=== PATIENT | female | born 1935 | race Caucasian/White ===

== ENCOUNTER 2016-05-02 17:03 | Emergency (ER) | payer MEDICARE, OTHER ==
[2016-07-01] MEDS ORDERED: CHLORTHALIDONE25 MG PO (12:00)
[2016-07-01] MEDS ORDERED: ZYLOPRIM100 MG PO (12:01)
[2016-07-01] MEDS ORDERED: BETAPACE 80 MG80 MG PO (12:01)
[2016-07-01] MEDS ORDERED: VITAMIN D2000 UNIT PO (12:02)
[2016-07-01] MEDS ORDERED: PRINIVIL20 MG PO (12:17)
[2016-07-01 12:53] VITALS: BMI 19.2
== END 2016-05-02 18:15 | disposition home or self-care (01) ==
LOC: D.ER 17:03
DX: S01.01XA Laceration without foreign body of scalp, initial encounter (principal); W18.30XA Fall on same level, unspecified, initial encounter; Y93.89 Activity, other specified; Y92.019 Unspecified place in single-family (private) house as the place of occurrence of the external cause; Z95.0 Presence of cardiac pacemaker; I10 Essential (primary) hypertension; Z79.01 Long term (current) use of anticoagulants

== ENCOUNTER 2016-06-24 21:34 | Emergency (ER) | payer MEDICARE, OTHER | END 2016-06-24 23:37 | disposition home or self-care (01) | LOC: D.ER 21:34 | DX: S01.01XA Laceration without foreign body of scalp, initial encounter (principal); W22.8XXA Striking against or struck by other objects, initial encounter; Y93.89 Activity, other specified; Y92.019 Unspecified place in single-family (private) house as the place of occurrence of the external cause; Z95.0 Presence of cardiac pacemaker; I48.91 Unspecified atrial fibrillation; I10 Essential (primary) hypertension ==

== ENCOUNTER 2016-08-22 09:48 | Inpatient (IN) | payer MEDICARE, OTHER ==
[~2016-08-22] VITALS: Ht 172.7 cm; Wt 55.5 kg
[~2016-08-22 09:48] MED LIST: BETAPACE 80 MG80 MG PO; CHLORTHALIDONE25 MG PO; PRINIVIL20 MG PO; VITAMIN D2000 UNIT PO; ZYLOPRIM100 MG PO
[2016-08-22 10:26] LABS: APPEARANCE CLEAR (CLEAR); BILIRUBIN NEGATIVE (NEGATIVE); COLOR YELLOW (YELLOW); GLUCOSE NEGATIVE (NEGATIVE); KETONE NEGATIVE (NEGATIVE); LEUKOCYTE ESTERASE NEGATIVE (NEGATIVE); NITRITE NEGATIVE (NEGATIVE); PROTEIN NEGATIVE (NEGATIVE); UROBILINOGEN NORMAL (NORMAL)
[2016-08-22 10:48] LABS: BASOPHILS 0.6 % (0-2); EOSINOPHILS 1.7 % (0-7); HEMOGLOBIN 13.9 g/dL (12-16); IMMATURE GRANULOCYTES 0.1 % (0-5); MCH 34.1 pg (26.0-34.0); MCHC 33.1 g/dL (31.0-37.0); MCV 102.9 fL (80.0-100.0); MEAN PLATELET VOLUME 11.9 fL (7.4-10.4); NEUTROPHILS 61.6 % (40-80); PLATELET COUNT 149 10x3/uL (130-400); RBC 4.08 10x6/uL (4.00-5.40); RDW 14.9 % (11.5-14.5); WBC 7.2 10x3/uL (4.8-10.8)
[2016-08-22 10:53] LABS: ALBUMIN 3.5 g/dL (3.4-5.0); ALKALINE PHOSPHATASE 74 U/L (46-116); ALT (SGPT) 46 U/L (10-68); BILIRUBIN - TOTAL 0.77 mg/dL (0.2-1.3); CALC OSMOLALITY 291 mosm/kg (275-300); CALCIUM 9.4 mg/dL (8.5-10.1); CARBON DIOXIDE 23.5 mmol/L (21.0-32.0); CHLORIDE - SERUM 106 mmol/L (98-107); CREATININE - SERUM 0.7 mg/dL (0.6-1.3); POTASSIUM - SERUM 4.1 mmol/L (3.5-5.1); PROTEIN - SERUM 6.3 g/dL (6.4-8.2); SODIUM 141 mmol/L (136-145); UREA NITROGEN 41 mg/dL (7-18); eGFR NON AFRICAN AMERICAN 86 mL/min (90-120)
[2016-08-22 10:54] LABS: GLUCOSE 114 mg/dL (74-106)
--- NOTE | 2016-08-22 13:53 | HP ---
PATIENT: RIMMA SLOAN MEDICAL RECORD: [id number] ACCOUNT: [id number] LOCATION:D.[facility] : 39 ADMISSION DATE: 08/22/16 HISTORY AND PHYSICAL EXAMINATION HISTORY OF PRESENT ILLNESS: A 80-year-old female presented to the Emergency Room with weakness, 2 days of persistent diarrhea, nausea, no vomiting. PAST MEDICAL HISTORY: Significant for atrial fibrillation, gout, hypertension, pacemaker, falls, angina. CURRENT MEDICATIONS: Listed as sotalol 80 mg 2 tablets twice a day, chlorthalidone 25 mg once a day, allopurinol 100 mg b.i.d., vitamin D. FAMILY HISTORY: Noncontributory. ALLERGIES: LISTED PENICILLIN. REVIEW OF SYSTEMS: GENERAL: Loss of appetite with acute symptoms. HEENT: No cephalgia, visual changes, tinnitus, epistaxis or dysphagia. CARDIOVASCULAR: Denies acute changes. ENDOCRINE: Denies polyuria, polydipsia, polyphagia. CARDIOVASCULAR: Denies chest pain, denies palpitations. History as above. PULMONARY: Denies hemoptysis, denies night sweats. GASTROINTESTINAL: Denies hematemesis, hematochezia. Admits persistent watery diarrhea for the past 2 days. No warning. Feeling extremely dehydrated, lightheaded. GENITOURINARY: Denies dysuria. Does admit decreased urine output with acute onset of symptoms. MUSCULOSKELETAL: Generalized weakness. No other acute changes. PHYSICAL EXAMINATION: VITAL SIGNS: Temp 98.4, heart rate 62, respirations 16, blood pressure 124/53, O2 sats 100% room air. GENERAL: Alert, oriented, mild distress secondary to above, continues to have frequent diarrhea in the Emergency Room. HEENT: Normocephalic, atraumatic. Eyes: Pupils equal, round, reactive to light and accommodation. Extraocular muscles intact. Conjunctivae not injected. Ears: Canals patent, TMs are intact. Nose: Nares patent without drainage. Throat: No erythema, no exudates. NECK: Supple. No lymphadenopathy, no JVD. HEART: Regular rate and rhythm. No S3, S4, no rub. LUNGS: Clear to auscultation bilaterally. Breathing is nonlabored. ABDOMEN: Soft, nontender, hyperactive bowel sounds. EXTREMITIES: Present times 4, no edema. NEUROLOGIC: No focal deficits. SKIN: Warm, dry. No rash. LABORATORY DATA: EKG shows atrial paced rhythm, rate of 62. Acute abdomen series pending. Urinalysis yellow, clear, no significant abnormalities. Hemoglobin 13.9, hematocrit 42, platelets 149. Chemistry shows a glucose of 114, BUN 41, creatinine 0.7, sodium 141, potassium 4.1, chloride 106, bicarb 23.5, AST 54, ALT 46, alk phos 74. HISTORY AND PHYSICAL [id number] RIMMA SLOAN ASSESSMENT AND PLAN: The patient is admitted with enteritis, persistent diarrhea, dehydration, generalized weakness. We will consult her sportspersons, Dr. Shah. Acute abdominal series pending, IV hydration, supportive care. TRANSINT:[id number] Voice Confirmation ID: [id number] DOCUMENT ID: [id number] MARCOS SUAZO DO at 1353 CC: [id number] DICTATION DATE: 08/22/16 1314 STEEL BURNER: 08/22/16 1352 ADM IN [place] [id number] [place] [address]
--- NOTE | 2016-08-22 14:25 | NUR ---
RECIEVED PT VIA STRETCHER FROM ER. REPORT RECIEVED FROM EBONI MELVIN. PT ORIENTED TO ROOM, ASSESSMENT DONE PER FLOWSHEET. BED IN LOW POSITION AND CALL LIGHT WITHIN REACH. WILL CONTINUE TO MONITOR.
[2016-08-22] MEDS ORDERED: BAYER CHEWABLE81 MG PO (14:27)
[2016-08-22 15:15] VITALS: BP 113/77; Ht 172.7 cm; Wt 55.5 kg
[2016-08-22 19:00] VITALS: BP 110/53
[2016-08-23 01:43] VITALS: BP 100/46
--- NOTE | 2016-08-23 05:34 | NUR ---
PATIENT SLEEPING IN BED WITH NO COMPLAINTS. PIV TO LEFT AC NOTED INFUSING NS@100. BED IN LOWEST LOCKED POSITION, HOB ELEVATED, x3 BEDRAILS UP, CALL LIGHT WITHIN REACH.
[2016-08-23 06:20] VITALS: BP 113/59
--- NOTE | 2016-08-23 08:00 | NUR ---
ASSESSMENT PER FLOW SHEET.PT WITHOUT DISTRESS.CALL LIGHT IN REACH
[2016-08-23 08:40] VITALS: BP 120/59
[2016-08-23] MEDS ORDERED: FLORAJEN3 CAPS460 MG PO (11:10)
--- NOTE | 2016-08-23 11:38 | NUR ---
Patient Name: RIMMA SLOAN Admission Status: ER Accout number: [id number] Admission Date: 08-22-2016 : 1935 Admission Diagnosis: Attending: PAULINA Current LOS: 1 Anticipated DC Date: 08-24-2016 Planned Disposition: Home Primary Insurance: MEDICARE A & B Discharge Planning Comments: CM NOTE: CM met with patient and spouse (Consuelo Henriquez- [phone]) who will drive her home. They live in a home without any steps or stairs and pt reports that it it safe to return home too. Pt states that she is already set up with OT from [facility] and denies any other HH needs at this time. Pt states that she has multiple grab bars in her home, walker, potty chair, shower chair & an elevated toilet seat. Pt will be discharged home today with spouse to drive her home & denies any CM needs. PCP: [facility]: [facility] Consuelo Henriquez ([phone]) spouse Creative Services Producer: Fernanda Zhao * Is the patient Alert and Oriented? Yes 0 * How many steps to enter\exit or inside your home? 0 0 * PCP [facility] 0 * [facility] * Preadmission Environment Home with Family 0 * ADLs Partial Dependent 0 * Partial ADLs (Assistance needed) Ambulation 0 * Equipment Bedside Commode Cane Elevated [place] Seat Rolling Walker Shower Chair Tub Bench 0 * Other Equipment GRAB BARS 0 * List name and contact numbers for known caregivers / representatives who currently or will assist patient after discharge: CONSUELO CANNON (SPOUSE) 0 * Community resources currently utilized Other 0 * Please name any agencies selected above. [facility]- OT 0 * Additional services required to return to the preadmission environment? No 0 * Can the patient safely return to the preadmission environment? Yes 0 * Has this patient been hospitalized within the prior 30 days at any hospital? No 0 Grand Total: 0
--- NOTE | 2016-08-23 11:48 | NUR ---
IV DCD WITH CATH INTACT.DISCHARGE INSTRUCTIONS,STATES UNDERSTANDING.
--- NOTE | 2016-08-23 12:01 | NUR ---
LEFT UNIT VIA WHEELCAHAIR
--- NOTE | 2016-08-24 08:10 | DS ---
PATIENT:RIMMA SLOAN :39 MEDICAL RECORD: [id number] DISCHARGE SUMMARY ADMISSION DATE: 08/22/16 DISCHARGE DATE: 08/23/16 HISTORY OF PRESENT ILLNESS: A 80-year-old female who presented to the Emergency Room with intractable diarrhea, dehydration and generalized weakness. She had been having episodic symptoms, but severe the last day and a half, unable to maintain fluid status, was admitted, started on IV fluids, clear liquid diet, acute abdominal series, had nonspecific bowel gas. No obstructive process. C. diff was negative. Leukocytes for stool negative. She is feeling much better after aggressive hydration. ADMISSION DIAGNOSES: Again, enteritis, intractable diarrhea. DISCHARGE DIAGNOSES: Enteritis, intractable diarrhea, resolved. The patient discharged home in significantly improved condition. PHYSICAL EXAMINATION: VITAL SIGNS: On discharge, temperature 98.2, blood pressure is 120/59, heart rate 69, respirations 20 and O2 sats 100% room air. GENERAL: Alert, oriented, no distress. HEART: Regular rate and rhythm. LUNGS: Clear. ABDOMEN: Soft and nontender. Normal bowel sounds. EXTREMITIES: Present times 4. NEUROLOGIC: Intact. DISCHARGE MEDICATIONS: Per med rec. Clear liquid diet, advance as tolerated. Follow up with her tv production assistant, Dr. Shah. Follow up in the clinic in 2 weeks and as needed. See chart for further details. TRANSINT:[id number] Voice Confirmation ID: [id number] DOCUMENT ID: [id number] MARCOS SUAZO DO at 0810 CC: [id number] DICTATION DATE: 08/23/16 1117 CYCLE MANAGER: 08/24/16 0026 DIS IN 08/23/16 [facility] [address] [id number]
== END 2016-08-23 12:01 | disposition home or self-care (01) | DRG 641 ==
LOC: D.ER 09:48 → D.MS 12:51
PROVIDERS: Emergency Medicine; ADMIT Family Medicine
DX: E86.0 Dehydration (principal); R53.1 Weakness; K52.9 Noninfective gastroenteritis and colitis, unspecified; I48.91 Unspecified atrial fibrillation; I10 Essential (primary) hypertension; Z95.0 Presence of cardiac pacemaker

== ENCOUNTER 2017-03-31 17:24 | Emergency (ER) | payer MEDICARE, OTHER ==
[2016-08-22 15:15] VITALS: BMI 18.5
[~2017-03-31 17:24] MED LIST changes: +BAYER CHEWABLE81 MG PO; +FLORAJEN3 CAPS460 MG PO
[2017-03-31 18:54] LABS: BASOPHILS 0.7 % (0-2); EOSINOPHILS 3.4 % (0-7); HEMATOCRIT 36.7 % (36.0-48.0); HEMOGLOBIN 12.9 g/dL (12-16); IMMATURE GRANULOCYTES 0.3 % (0-5); LYMPHOCYTES 28.3 % (15-50); MCH 34.8 pg (26.0-34.0); MCHC 35.1 g/dL (31.0-37.0); MCV 98.9 fL (80.0-100.0); MEAN PLATELET VOLUME 10.8 fL (7.4-10.4); MONOCYTES 9.8 % (2-11); NEUTROPHILS 57.5 % (40-80); PLATELET COUNT 136 10x3/uL (130-400); RBC 3.71 10x6/uL (4.00-5.40); RDW 14.7 % (11.5-14.5); WBC 6.7 10x3/uL (4.8-10.8)
[2017-03-31 19:18] LABS: ALBUMIN 3.3 g/dL (3.4-5.0); ANION GAP 14.8 mmol/L (8-16); BILIRUBIN - TOTAL 0.4 mg/dL (0.2-1.3); CALCIUM 9.3 mg/dL (8.5-10.1); CARBON DIOXIDE 26.5 mmol/L (21.0-32.0); CREATININE - SERUM 0.8 mg/dL (0.6-1.3); POTASSIUM - SERUM 4.3 mmol/L (3.5-5.1); PROTEIN - SERUM 6.2 g/dL (6.4-8.2)
[2017-03-31 20:00] LABS: INR 1.02 (0.85-1.17)
== END 2017-03-31 20:15 | disposition home or self-care (01) ==
LOC: D.ER 17:24
PROVIDERS: Nurse Practitioner Family
DX: S00.03XA Contusion of scalp, initial encounter (principal); W19.XXXA Unspecified fall, initial encounter; Y93.89 Activity, other specified; Y92.010 Kitchen of single-family (private) house as the place of occurrence of the external cause; S01.01XA Laceration without foreign body of scalp, initial encounter; S09.90XA Unspecified injury of head, initial encounter; G35 Multiple sclerosis